=== PATIENT | male | born 1990 | race Two or more races ===

== ENCOUNTER 2024-02-08 12:35 | Emergency (ER) | payer OTHER, SELFPAY ==
[2024-02-08 12:36] VITALS: PULSE 97; O2SAT 98
[2024-02-08 13:01] VITALS: BP 124/83; PULSE 86; RESP 17; TEMP 36.8; O2SAT 96; BMI 21.9
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
[2024-02-08] MEDS: LORazepam 0.5 MG TABLET 1 MG PO (13:58)
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
== END 2024-02-08 17:28 | disposition home or self-care (01) ==
PROVIDERS: Emergency Provider Emergency Medicine; PCP Nurse Practitioner Family
DX: S90.32XA Contusion of left foot, initial encounter (principal); V89.2XXA Person injured in unspecified motor-vehicle accident, traffic, initial encounter
CPT/HCPCS: 73630; 99283; A9270